=== PATIENT | female | born 1970 | race African-American/Black ===

== ENCOUNTER 2017-09-19 16:19 | Emergency (ER) | payer OTHER, MEDICAID ==
[~2017-09-19] VITALS: Ht 162.6 cm; Wt 99.0 kg
[2017-09-20] MEDS ORDERED: MAGNESIUM/ALUMINUM HYDROXIDE/SIMETHICONE 30ML UDC PO STA (01:26)
[2017-09-20] MEDS ORDERED: IPRATROPIUM/ALBUTEROL 0.5-3(2.5)MG/3ML NEB HHN ONE (01:30)
[2017-09-20 01:45] VITALS: BP 133/67
[2017-09-20 01:45] LABS: BASOPHILS % 0.8 % (0.0-2.0); EOSINOPHILS % 0.1 % (0.0-5.0); HEMATOCRIT. 35.8 % (36.0-48.0); HEMOGLOBIN. 11.7 g/dL (12.0-16.0); MEAN CORPUSCULAR HEMOGLOBIN 29.1 pg (28.0-32.0); MEAN PLATELET VOLUME 7.2 fl (7.4-10.4); MONOCYTES % 13.8 % (2.0-8.0); NEUTROPHILS % 32.3 % (40.0-76.0); PLATELET 303 x1000/uL (130-400); RED BLOOD CELL COUNT 4.02 mill/uL (4.2-5.4); RED CELL DISTRIBUTION WIDTH 14.4 % (11.6-14.6)
[2017-09-20 01:46] LABS: CHLORIDE 105 mEq/L (98-107)
[2017-09-20 01:49] LABS: INR 1.1; PROTHROMBIN TIME 11.4 sec (9.4-11.6)
[2017-09-20 01:55] LABS: CARBON DIOXIDE 25 mEq/L (21-32)
[2017-09-20 02:27] LABS: CLARITY URINE CLOUDY (CLEAR); COLOR URINE YELLOW (YELLOW); KETONES URINE TRACE (NEGATIVE); LEUKOCYTE ESTERASE URINE NEGATIVE (NEGATIVE); NITRITE URINE NEGATIVE (NEGATIVE); OCCULT BLOOD URINE NEGATIVE (NEGATIVE); PROTEIN URINE TRACE (NEGATIVE); SPECIFIC GRAVITY URINE 1.032 (1.005-1.030)
== END 2017-09-20 04:20 | disposition home or self-care (01) ==
LOC: ER 18:15
DX: J32.9 Chronic sinusitis, unspecified (principal); J45.909 Unspecified asthma, uncomplicated; F17.200 Nicotine dependence, unspecified, uncomplicated; Z90.49 Acquired absence of other specified parts of digestive tract
CPT/HCPCS: 36415; 71045; 80053; 81001; 81025; 85025; 85610; 94640; 99285; J7030; J7620

== ENCOUNTER 2021-03-08 13:51 | Emergency (ER) | payer MEDICARE, MEDICAID ==
[~2021-03-08] VITALS: Ht 170.2 cm; Wt 91.0 kg
[2021-03-08] MEDS ORDERED: HYDROCODONE/ACETAMINOPHEN 5/325MG TABLET PO ONE (14:30)
[2021-03-08] MEDS ORDERED: ONDANSETRON 4MG ODT PO ONE (16:45)
[2021-03-08] MEDS ORDERED: MORPHINE SULFATE 10 MG/ML CPJ IM ONE (16:45)
[2021-03-08 17:36] VITALS: BP 121/85
[2021-03-08] MEDS ORDERED: CYCL10TA7 MT (17:36)
[2021-03-08] MEDS ORDERED: NAPR-1176 MT (17:36)
== END 2021-03-08 18:02 | disposition home or self-care (01) ==
LOC: ER 14:09
DX: M54.9 Dorsalgia, unspecified (principal); V49.40XA Driver injured in collision with unspecified motor vehicles in traffic accident, initial encounter; Y93.89 Activity, other specified; Y92.410 Unspecified street and highway as the place of occurrence of the external cause; Z90.49 Acquired absence of other specified parts of digestive tract
CPT/HCPCS: 72131; 96372; 99284; J2270; Q0162

== ENCOUNTER 2022-03-06 09:52 | Emergency (ER) | payer MEDICARE, MEDICAID ==
[~2022-03-06] VITALS: Ht 162.6 cm; Wt 112.0 kg
[~2022-03-06 09:52] MED LIST: CYCL10TA21 MT; NAPR-1176 MT
[2022-03-06] MEDS ORDERED: CLINDAMYCIN 600 MG in DEXTROSE 5% WATER 50 ML IV STA (12:02)
[2022-03-06] MEDS ORDERED: CEFTRIAXONE 2 G PREMIX 50 ML IV STA (12:02)
[2022-03-06] MEDS ORDERED: DEXAMETHASONE 4MG/ML 1ML VIAL IV ONE (12:15)
[2022-03-06] MEDS ORDERED: SODIUM CHLORIDE 0.9% 1,000 ML IV ONE (12:15)
[2022-03-06] MEDS ORDERED: KETOROLAC 15MG/ML VIAL IV ONE (12:15)
[2022-03-06] MEDS ORDERED: CEFTRIAXONE 2 G in DEXTROSE 5% WATER 50 ML IV NR (12:30)
[2022-03-06] MEDS ORDERED: CLINDAMYCIN 600 MG PREMIX 50 ML IV NR (12:30)
[2022-03-06 12:33] LABS: BASOPHILS % 0.3 % (0.0-2.0); HEMATOCRIT. 36.3 % (36.0-48.0); HEMOGLOBIN. 11.7 g/dL (12.0-16.0); LYMPHOCYTES % 10.2 % (20.0-50.0); MEAN CORPUSCULAR HEMOGLOBIN 27.9 pg (28.0-32.0); MEAN CORPUSCULAR VOLUME 86.6 fL (81.0-99.0); MEAN PLATELET VOLUME 7.8 fl (7.4-10.4); MONOCYTES % 5.5 % (2.0-8.0); PLATELET 467 x1000/uL (130-400); RED BLOOD CELL COUNT 4.19 mill/uL (4.2-5.4); RED CELL DISTRIBUTION WIDTH 15.4 % (11.6-14.6)
[2022-03-06 12:38] LABS: CHLORIDE 103 mEq/L (98-107)
[2022-03-06] MEDS ORDERED: CLIN-194 MT (16:00)
[2022-03-06] MEDS ORDERED: IBUP-2028 MT (16:00)
[2022-03-06 16:35] VITALS: BP 117/56
== END 2022-03-06 16:54 | disposition home or self-care (01) ==
LOC: ER 10:27
DX: J03.90 Acute tonsillitis, unspecified (principal); R51.9 Headache, unspecified; Z20.822 Contact with and (suspected) exposure to COVID-19; Z90.49 Acquired absence of other specified parts of digestive tract
CPT/HCPCS: 36415; 70491; 71045; 80053; 83605; 84484; 85025; 87040; 87426; 87430; 96365; 96367; 96375; 99285; C9803; J0696; J1100; J1885; J3490; J7030; J7060